=== PATIENT | female | born 1990 | race African-American/Black ===

== ENCOUNTER 2022-03-05 03:00 | Inpatient (IN) | payer OTHER ==
[~2022-03-05 03:00] MED LIST: ELECTROLYTE-148 SOLN 1,000 ML IV SCH
[2022-03-05 03:45] LABS: BASO % 0.2 % (0-2.0); HEMATOCRIT 38.7 % (32.4-45.2); HEMOGLOBIN 12.9 GM/dL (10.7-15.3); LYMPH % 13.2 % (8-40); MCH 29.6 pg (25.7-33.7); MCHC 33.5 g/dl (32.0-36.0); MEAN CELL VOLUME 88.3 fl (80-96); MEAN PLT VOLUME 8.9 fl (7.5-11.1); MONO % 8.5 % (3.8-10.2); NEUT % 78.1 % (42.8-82.8); PLATELET COUNT 144 10^3/uL (134-434); RBC 4.38 M/mm3 (3.60-5.2); RDW 15.4 % (11.6-15.6)
[2022-03-05] MEDS ORDERED: ELECTROLYTE-148 SOLN 1,000 ML IV SCH (03:45)
[2022-03-05] MEDS ORDERED: OXYTOCIN 30 UNITS in 0.9% NS 30 UNIT/500 ML INFUS.BAG IVPB SCH (03:45)
[2022-03-05 03:50] LABS: INR 0.92 (0.83-1.09); PROTHROMBIN TIME (PATIENT) 10.6 SEC (9.7-13.0)
[2022-03-05 03:53] LABS: ACTIVATED PTT 28.7 SECONDS (25.2-36.5)
[2022-03-05 04:02] LABS: CALCIUM 8.4 mg/dL (8.5-10.1)
[2022-03-05 04:03] LABS: BLOOD UREA NITROGEN 8.4 mg/dL (7-18)
[2022-03-05 04:06] LABS: CREATININE 0.7 mg/dL (0.55-1.3)
[2022-03-05 04:14] VITALS: BMI 28.3
[2022-03-05] MEDS ORDERED: FENTANYL/BUPIVACAINE/NS/PF - PCEA - 50 ML DISP.SYRIN EP ONE ×2 (04:22→09:19)
[2022-03-05] MEDS ORDERED: NALOXONE HCL 0.4 MG/ML VIAL IVPUSH PRN (04:37)
[2022-03-05] MEDS ORDERED: BUPIVACAINE HCL/PF 0.25% (2.5MG/ML) 10 ML VIAL ONE (04:38)
[2022-03-05] MEDS ORDERED: OXYTOCIN 30 UNITS in 0.9% NS 30 UNIT/500 ML INFUS.BAG IVPB ONE (05:26)
[2022-03-05] MEDS: FENTANYL/BUPIVACAINE/NS/PF - PCEA - 50 ML DISP.SYRIN EP SCH ×2 (09:20→09:31)
[2022-03-05] MEDS ORDERED: OXYTOCIN 20 UNITS in 0.9% NS 20 UNIT/1,000 ML INFUS.BAG IV ONE (09:22)
[2022-03-05] MEDS ORDERED: BENZOCAINE 20% 57 GM BOTTLE TP PRN (12:12)
[2022-03-05] MEDS ORDERED: METHYLERGONOVINE MALEATE 0.2 MG/1 ML AMP IM PRN (12:12)
[2022-03-05] MEDS ORDERED: BISACODYL 10 MG SUPP.RECT RC PRN (12:12)
[2022-03-05] MEDS ORDERED: IBUPROFEN 600 MG TABLET (FP) PO PRN (12:12)
[2022-03-05] MEDS ORDERED: BENZOCAINE 28 GM HEMORRHOIDAL OINTMENT TP PRN (12:12)
[2022-03-05] MEDS ORDERED: ACETAMINOPHEN 325 MG TABLET (FP) PO PRN (12:12)
[2022-03-05] MEDS ORDERED: WITCH HAZEL 50% (TUCKS) 40 PAD/JAR PAD TP PRN (12:12)
[2022-03-05] MEDS ORDERED: OXYTOCIN 20 UNITS in 0.9% NS 20 UNIT/1,000 ML INFUS.BAG IV SCH (12:15)
[2022-03-05] MEDS ORDERED: IBUPROFEN 600 MG TABLET (FP) PO ONE (14:18)
[2022-03-06 08:54] LABS: BASO % 0.1 % (0-2.0); EOS % 0.2 % (0-4.5); HEMATOCRIT 32.9 % (32.4-45.2); HEMOGLOBIN 10.8 GM/dL (10.7-15.3); LYMPH % 15.1 % (8-40); MCH 29.1 pg (25.7-33.7); MCHC 32.7 g/dl (32.0-36.0); MEAN CELL VOLUME 88.9 fl (80-96); MONO % 5.2 % (3.8-10.2); NEUT % 79.4 % (42.8-82.8); PLATELET COUNT 139 10^3/uL (134-434); RDW 15.2 % (11.6-15.6); WHITE BLOOD COUNT 16.2 K/mm3 (4.0-10.0)
[2022-03-06] MEDS: PRENATAL VITAMINS W/ FOLIC ACID TABLET (FP) PO SCH (09:48)
[2022-03-06] MEDS ORDERED: SENNOSIDES/DOCUSATE COMBO (SENNA PLUS) TABLET (UD) PO PRN (22:00)
[2022-03-07] MEDS: PRENATAL VITAMINS W/ FOLIC ACID TABLET (FP) PO SCH (10:38)
[2022-03-07 11:00] VITALS: BP 124/85; PULSE 85; RESP 17; TEMP 97.3
[2022-03-08 11:29] LABS: POC NITRAZINE POS
== END 2022-03-07 14:30 | disposition home or self-care (01) | DRG 560 ==
LOC: JLDR 03:00 → J3W 14:49
PROVIDERS: ADMIT Obstetrics & Gynecology; ATTEND Allergy & Immunology
PROC: 10E0XZZ Delivery of Products of Conception, External Approach (ICD-10-PCS; principal; 2022-03-05)
PROC: 0W8NXZZ Division of Female Perineum, External Approach (ICD-10-PCS; 2022-03-05)
PROC: 0KQM0ZZ Repair Perineum Muscle, Open Approach (ICD-10-PCS; 2022-03-05)
DX: O42.02 Full-term premature rupture of membranes, onset of labor within 24 hours of rupture (principal); O69.2XX0 Labor and delivery complicated by other cord entanglement, with compression, not applicable or unspecified; O77.0 Labor and delivery complicated by meconium in amniotic fluid; Z3A.40 40 weeks gestation of pregnancy; Z37.0 Single live birth; Z86.718 Personal history of other venous thrombosis and embolism
CPT/HCPCS: 36415; 59025; 59409; 76819-TC; 80048; 83986-QW; 85025; 85610; 85730; 86780; 86850; 86900; 86901; C9803-CS; U0003; U0005